=== PATIENT | male | born 1960 | race Caucasian/White ===

== ENCOUNTER 2019-06-14 13:01 | Emergency (ER) | payer SELFPAY ==
[~2019-06-14] VITALS: Ht 180 cm; Wt 109.0 kg
[~2019-06-14 13:01] MED LIST: ACHD5005 PO; AGM875T PO; ALPR.25T PO; CEPH500C PO; METR500T PO; OXYC-12 PO
[2019-06-14] MEDS ORDERED: LIDOCAINE 1% INJ 20 ML 20 ML VIAL INJ ONE (13:45)
[2019-06-14] MEDS ORDERED: TETANUS,DIPTH,PERTUSS P/F (BOOSTRIX) 0.5 ML VIAL IM ONE (14:00)
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
[2019-06-14 14:24] VITALS: BP 147/89
== END 2019-06-14 14:24 | disposition home or self-care (01) ==
LOC: EDUNIT# 13:01 → ER 13:03
DX: S01.111A Laceration without foreign body of right eyelid and periocular area, initial encounter (principal); Y04.0XXA Assault by unarmed brawl or fight, initial encounter; Y92.410 Unspecified street and highway as the place of occurrence of the external cause
CPT/HCPCS: 12011; 90471; 90715

== ENCOUNTER 2020-01-19 12:47 | Emergency (ER) | payer SELFPAY ==
[~2020-01-19] VITALS: Ht 180 cm; Wt 109.0 kg
[2020-01-19 13:20] VITALS: BP 127/77
--- NOTE | 2020-01-19 13:35 | ED Upper Extremity ---
General Chief Complaint: Laceration Stated Complaint: L HAND MIDDLE FINGER LAC Nursing Triage Note: laceration to 3rd finger on L hand Nursing Sepsis Screen: No Definite Risk Source: patient Exam Limitations: no limitations History of Present Illness Date Seen by Provider: Jan 19, 2020 Time Seen by Provider: 13:32 Initial Comments Laceration dorsal aspect middle phalanx left middle finger from a PVC pipe cutting tool which was new. Tetanus vaccine was updated A few months ago. Onset: just prior to arrival Severity: moderate Pain/Injury Location: left 3rd finger Method of Injury: direct blow Modifying Factors: Worse With Movement Allergies and Home Medications Allergies Coded Allergies: No Known Drug Allergies (Unverified , 05/08/10) Home Medications Cephalexin Monohydrate 500 Mg Capsule, 1 EACH PO QID Prescribed by: ADAN JACKSON on 09/13/12 1023 Hydrocodone Bit/Acetaminophen 1 Each Tablet, 1-2 EACH PO Q6H PRN Prescribed by: ADAN JACKSON on 09/13/12 1023 Patient Home Medication List Home Medication List Reviewed: Yes Review of Systems Constitutional: see HPI EENTM: see HPI Respiratory: no symptoms reported Cardiovascular: no symptoms reported Genitourinary: no symptoms reported Musculoskeletal: no symptoms reported Psychiatric/Neurological: No Symptoms Reported Past Trjblkr-Hpmfzx-Qupurp Hx Patient Social History Recent Foreign Travel: No Contact w/Someone Who Travel: No Recent Infectious Disease Expo: No Recent Hopitalizations: No Immunizations Up To Date Tetanus Booster (TDap): More than 5yrs Seasonal Allergies Seasonal Allergies: No Past Medical History Surgeries: Yes (bowel surgery) Bowel Surgery Respiratory: No Cardiac: No Neurological: No Reproductive Disorders: No Sexually Transmitted Disease: No HIV/AIDS: No Genitourinary: No Gastrointestinal: No Musculoskeletal: No Endocrine: No HEENT: No Cancer: No Psychosocial: No Integumentary: No Blood Disorders: No Family Medical History No Pertinent Family Hx Physical Exam Vital Signs Vital Signs - First Documented 01/19/20 13:20 Temp 37.0 Pulse 87 Resp 18 B/P (MAP) 127/77 (94) Pulse Ox 98 Capillary Refill : Less Than 3 Seconds Height, Weight, BMI Height: '" Weight: lbs. oz. kg; 33.00 BMI Method:Stated General Appearance: WD/WN, no apparent distress Respiratory: no respiratory distress, no accessory muscle use Shoulder: normal inspection, non-tender Elbow/Forearm: normal inspection, non-tender Wrist: Yes normal inspection, Yes non-tender Hand: Left, laceration (1 cm superficial laceration dorsal aspect middle phalanx left middle finger with depth just barely into the subcutaneous tissue. There is active bleeding easily controlled with direct pressure. Tourniquet was applied finger, wound was irrigated with saline, wound was then patted dry and closed with tissue adhesive. We will provide a full R splint to prevent flexion and stretching of the glue. He does maintain flexion and extension abilities.) Neurologic/Tendon: normal sensation, normal motor functions, normal tendon functions Neurologic/Psychiatric: alert, normal mood/affect, oriented x 3 Skin: normal color, warm/dry Procedures/Interventions Suture Size: 5-0 Progress/Results/Core Measures Results/Orders Vital Signs/I&O 01/19/20 13:20 Temp 37.0 Pulse 87 Resp 18 B/P (MAP) 127/77 (94) Pulse Ox 98 Blood Pressure Mean: 94 Departure Impression Primary Impression: Finger laceration Qualified Codes: S61.213A - Laceration without foreign body of left middle finger without damage to nail, initial encounter Disposition: HOME, SELF-CARE Condition: Stable Departure-Patient Inst. Decision time for Depature: 13:35 Referrals: YENIFER MEJIAS MD (PCP/Family) Primary Care Physician Patient Instructions: Laceration Repair With Glue (DC) Add. Discharge Instructions: 1. Return to ER for any concerns. The glue will follow up on its own in 3-5 days. Do not apply any petroleum-based products such as Vaseline or antibiotic ointment and that will dissolve the glue. Wear the splint for the next 3-5 days all times to keep from bending the finger and stretching the glue and peeling loose. All discharge instructions reviewed with patient and/or family. Voiced understanding. SHANIKA SMALL APRN Jan 19, 2020 13:35
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
== END 2020-01-19 13:43 | disposition home or self-care (01) ==
LOC: EDUNIT# 12:47 → ER 12:48
DX: S61.213A Laceration without foreign body of left middle finger without damage to nail, initial encounter (principal); W26.8XXA Contact with other sharp object(s), not elsewhere classified, initial encounter

== ENCOUNTER → 2021-07-20 | Outpatient (CLI) | payer SELFPAY | LOC: LABNPT 05:44 | DX: U07.1 COVID-19 (principal) | CPT/HCPCS: 87635 ==

== ENCOUNTER → 2021-08-06 | Outpatient (CLI) | payer SELFPAY | LOC: LABNPT 08:21 | DX: U07.1 COVID-19 (principal) | CPT/HCPCS: 87635 ==